=== PATIENT | female | born 1980 | race Caucasian/White ===

== ENCOUNTER 2020-01-02 17:53 | Observation (INO) | payer BC, SELFPAY ==
[2020-01-02 18:30] VITALS: BMI 36.8
[2020-01-02 18:45] VITALS: BP 99/79; PULSE 73
[2020-01-02 19:00] VITALS: BP 112/64; PULSE 73
[2020-01-02 19:15] VITALS: BP 107/65; PULSE 75
[2020-01-02 19:34] LABS: Add Urine Microscopic? YES; Appearance Urine Clear (Clear); Bacteria Urine 2+ /hpf; Bilirubin Urine Negative (Negative); Blood Urine Negative (Negative); Color Urine Yellow (Yellow); Glucose Urine UA Negative (Negative); Ketones Urine Negative (Negative); Leukocyte Esterase Ur Negative LEU/UL (NEGATIVE); Mucus Urine Rare /lpf; Nitrate Urine Negative (Negative); Protein Urine Negative (Negative); RBC Urine 0-2 /hpf (0-2); Specific Grav Ur 1.014 (1.001-1.035); Squamous Epithelial Cell Urine Few /hpf (Few); Urobilinogen Urine Negative mg/dL (<2.0)
--- NOTE | 2020-01-02 20:50 | OBADM ---
This patient, Meagan Schmidt, admitted to the OB room Labor/Delivery/Recovery 106 for observation. Patient/family oriented to hospital policies and general routines including ID bracelet, bed and alarms, visiting hours, pain management, procedures, bathroom and other care routines, personal items, smoking policy, room service/diet, and visiting hours. Patient/Family are encouraged to report perceived risks to care and to ask questions if they do not understand what they are told or what they should do.
--- NOTE | 2020-01-05 17:22 | PM.OBTRLD ---
OB - Triage/Final Diagnosis Evaluation Laboratory results: Laboratory Tests 01/02/20 19:19 Urine Color Yellow Urine Appearance Clear Urine pH 6.0 Ur Specific [place] 1.014 Urine Protein Negative Urine Glucose (UA) Negative Urine Ketones Negative Ur Blood (Man) Negative Urine Nitrate Negative Urine Bilirubin Negative Urine Urobilinogen Negative Ur Leukocyte Esterase Negative Urine RBC 0-2 Urine WBC 4-6 H Ur Squamous Epith Cells Few Urine Bacteria 2+ H Urine Mucus Rare Final Diagnosis (1) False labor: Code(s): O47.9 - False labor, unspecified Status: Acute
== END 2020-01-02 18:28 | disposition home or self-care (01) ==
PROVIDERS: Admitting Provider Obstetrics & Gynecology; Visit Provider Obstetrics & Gynecology
DX: O47.9 False labor, unspecified (principal); Z3A.00 Weeks of gestation of pregnancy not specified
CPT/HCPCS: 81001; 87086; G0378; G0379

== ENCOUNTER 2020-01-16 01:50 | Observation (INO) | payer BC, SELFPAY ==
[2020-01-16 02:10] VITALS: BP 137/72; PULSE 79
[2020-01-16 02:15] VITALS: BP 116/63; PULSE 75
[2020-01-16 02:30] VITALS: BP 112/60; PULSE 72
[2020-01-16 02:45] VITALS: BP 111/77
[2020-01-16 02:50] VITALS: BMI 37.3
[2020-01-16 03:00] VITALS: BP 115/100; PULSE 65
--- NOTE | 2020-01-16 03:23 | PC.NURSE ---
Dr. Vallejo updated on patient SVE. Patient states contractions has resolved and she is no longer feeling them. Patient SVE unchanged after 1 hour of monitoring. SVE 50/-2. FHT 110-120/moderate/accelerations. VSS. Discharge orders given.
[2020-01-16 03:26] VITALS: BP 112/61; PULSE 70
--- NOTE | 2020-01-21 09:14 | PM.OBTRLD ---
OB - Triage/Final Diagnosis Final Diagnosis (1) False labor: Code(s): O47.9 - False labor, unspecified Status: Acute
== END 2020-01-16 03:48 | disposition home or self-care (01) ==
PROVIDERS: Admitting Provider Obstetrics & Gynecology; Visit Provider Obstetrics & Gynecology
DX: O47.1 False labor at or after 37 completed weeks of gestation (principal); Z3A.39 39 weeks gestation of pregnancy
CPT/HCPCS: G0378; G0379

== ENCOUNTER 2020-01-19 12:32 | Observation (INO) | payer BC, SELFPAY ==
[2020-01-19] VITALS (8 sets, daily range): BP systolic 104–122; BP diastolic 60–74; PULSE 68–78; TEMP 37.4
[2020-01-19 13:48] LABS: Add Urine Microscopic? NO; Appearance Urine Clear (Clear); Bilirubin Urine Negative (Negative); Blood Urine Negative (Negative); Color Urine Yellow (Yellow); Glucose Urine UA Negative (Negative); Ketones Urine Negative (Negative); Leukocyte Esterase Ur Negative LEU/UL (Negative); Nitrate Urine Negative (Negative); Protein Urine Negative (Negative); Specific Grav Ur 1.016 (1.001-1.035); Urobilinogen Urine Negative mg/dL (<2.0)
--- NOTE | 2020-01-21 08:30 | PM.OBTRLD ---
OB - Triage/Final Diagnosis Visit Information Reason for evaluation: threatened labor Evaluation Laboratory results: Laboratory Tests 01/19/20 13:37 Urine Color Yellow Urine Appearance Clear Urine pH 8.0 Ur Specific [place] 1.016 Urine Protein Negative Urine Glucose (UA) Negative Urine Ketones Negative Ur Blood (Man) Negative Urine Nitrate Negative Urine Bilirubin Negative Urine Urobilinogen Negative Leukocyte Esterase Rfl Negative
== END 2020-01-19 14:50 | disposition home or self-care (01) ==
PROVIDERS: Admitting Provider Obstetrics & Gynecology; Visit Provider Obstetrics & Gynecology
DX: O47.1 False labor at or after 37 completed weeks of gestation (principal); Z3A.39 39 weeks gestation of pregnancy
CPT/HCPCS: 81003; G0378; G0379

== ENCOUNTER 2020-01-21 05:04 | Inpatient (IN) | payer BC, SELFPAY ==
[2020-01-21] VITALS (86 sets, daily range): BP systolic 88–139; BP diastolic 42–95; PULSE 58–147; TEMP 36.4–37; O2SAT 93–100; BMI 37.8
--- NOTE | 2020-01-21 05:25 | LDADM ---
This patient, Meagan Schmidt, was admitted to Labor/Delivery/Recovery 103 on 01/21/20 at 05:04. Plans for labor, pain management and were discussed with patient. Patient/family oriented to hospital policies and general routines including ID bracelet, bed and alarms, visiting hours, pain management, procedures, bathroom and other care routines, personal items, smoking policy, room service/diet and guest tray routines, security routines, and visiting hours. Patient/Family are encouraged to report perceived risks to care and to ask questions if they do not understand what they are told or what they should do. See OBIX for further documentation.
[2020-01-21 05:40] LABS: Basophils Percent Auto 0.3 % (0.2-1.2); Eosinophils Absolute Auto 0.1 K/mm3 (0-0.3); Eosinophils Percent Auto 0.8 % (0-4.4); Hematocrit 33.1 % (37.0-47.0); Immature Granulocyte Absolute 0.21 K/mm3 (0.00-0.031); Immature Granulocyte Percent A 1.8 % (0-0.5); Lymphocytes Absolute Auto 2.49 K/mm3 (0.9-3.2); Lymphocytes Percent Auto 21.3 % (18.3-44.2); Mean Corpuscular HGB Conc 33.2 g/dl (32-36); Mean Corpuscular Hemoglobin 32.9 pg (26-34); Mean Corpuscular Volume 99.1 fl (80-100); Mean Platelet Volume 9.8 fl (7.4-10.4); Monocytes Absolute Auto 0.8 K/mm3 (0.1-0.6); Monocytes Percent Auto 6.4 % (2.6-8.5); Neutrophils Absolute Auto 8.1 K/mm3 (1.3-6.7); Neutrophils Percent Auto 69.4 % (45.5-73.1); Platelet Count Result 200 k/mm3 (150-375); Red Blood Count 3.34 M/mm3 (4.2-5.4); Red Cell Distribution Width 14.6 % (11.5-14.5); White Blood Count 11.7 K/mm3 (4.5-10.0)
[2020-01-21] MEDS: OXYTOCIN 30 UNITS/NS 500 ML 30 UNITS/500 ML BAG IV CONT (06:05)
[2020-01-21] MEDS: LACTATED RINGERS 1,000 ML 125 ML IV CONT ×3 (06:05→15:54)
--- NOTE | 2020-01-21 06:32 | WPDHPUPDATE1 ---
History and Physical Update Update Date/Time: 01/21/20 06:32 History and Physical has been reviewed, including an updated exam of the patient. There are NO changes in the patient's condition. Risks, benefits, and alternatives have been discussed and questions answered. Patient agrees to proceed with procedure.
--- NOTE | 2020-01-21 06:33 | WPDOBADMIT ---
Obstetrics - Admit Note Admission Note: record reviewed. No pertinent additions to the history and/or any subsequent changes in the physical findings that are not consistent with the expected course of the were found. Additions to the history and/or subsequent changes in the physical findings follow. None.
[2020-01-21 06:48] LABS: HIV 1/2 Ab P24 Ag Result Negative (Negative)
[2020-01-21] MEDS: FAMOTIDINE 20 MG/2 ML VIAL IV PUSH (10:50)
[2020-01-21 11:27] LABS: Rapid Plasma Reagin Non-Reactive (NonReactive)
--- NOTE | 2020-01-21 20:53 | PM.OBPRVD ---
OB - Delivery Note Procedure Delivery date: 01/21/20 Route of delivery: Episiotomy description: None Laceration description: None Specimen: No Estimated blood loss (mL): 400 Anesthesia type: Epidural Disposition: floor Narrative: Patient prepped draped usual manner for this procedure. Maternal expulsive efforts readily delivered vertex which was suctioned naso and oropharynx. Rest of baby was delivered without difficulty. Cord is clamped and cut and the placenta delivered spontaneously. Cervix vagina vulva were inspected no lacerations or tears. Uterus well contracted no significant bleeding at this point seizure was considered terminated. [place] Baby Weeks of gestation at delivery: 39 gender: Female Weight (pounds): 8 Weight (ounces): 1 presentation: vertex score one minute: 8 score five minutes: 9
[2020-01-21] MEDS: OXYTOCIN 30 UNITS/NS 500 ML 30 UNITS/500 ML BAG 125 UNITS IV CONT (21:02)
[2020-01-21] MEDS: IBUPROFEN 600 MG TABLET PO (21:53)
--- NOTE | 2020-01-21 23:38 | OBPPTRN ---
Patient transferred to post room #280 via wheelchair with baby in bassinet. Support person present. Oriented to unit, room, information board, rooming in, admission packet and security measures. Patient verbalizes understanding.
[2020-01-22] VITALS: BP 110/58; PULSE 72; RESP 18; TEMP 36.6; O2SAT 99
[2020-01-22] MEDS: IBUPROFEN 600 MG TABLET PO ×3 (04:55→18:10)
--- NOTE | 2020-01-22 07:00 | PC.NURSE ---
PT introductions made and plan of care discussed per post , pain management, breast feeding, daily care activities. PT verbalized understanding of such care.
--- NOTE | 2020-01-22 08:21 | PM.OBDSVD ---
OB - DS: Summary OB Procedures : None OB Procedures Intrapartum: Spontaneous Vag Delivery OB Procedures: : None Time Spent with Patient Time attestation: Total time spent providing and/or coordinating discharge services: DS: Data Data Completed and Pending Labs on day of discharge: Labs from last 24 hours 01/22/20 01/21/20 05:38 05:29 Hgb 10.0 L Hct 30.0 L RPR Non-reactive Discharge Plan Discharge Discharging Clinician: Dae Nevarez Patient Disposition: Home, Self-Care Activity: as tolerated Diet: as tolerated Patient Instructions: Antibiotic Form Stand Alone Forms: General Discharge Information Follow-up/Referrals: Dae Nevarez MD [Physician] - 3 Weeks Discharge Medications: Continued PNV [id number] [] 28 mg iron- 800 mcg Tablet 1 tablet PO DAILY RF: 0 Discontinued acyclovir 800 mg tablet 800 mg PO DAILY RF: 0 folic acid 1 mg tablet 1 mg PO DAILY RF: 0 Date of admission: 01/21/20 05:04 Primary Care Provider: UNKNOWN,DOCTOR Admitting Provider: Dae Nevarez Attending physician on admission: Dae Nevarez
[2020-01-22 08:35] VITALS: BP 122/66; PULSE 67; RESP 18; TEMP 37.6; O2SAT 99
[2020-01-22 11:30] VITALS: PULSE 67; RESP 18; O2SAT 99
[2020-01-22] MEDS: MULTIVIT/MIN/PREN/FOL AC/IRON TABLET 1 TAB PO (11:39)
--- NOTE | 2020-01-22 14:50 | PC.NURSE ---
Requested mother call out for assessment of feeding using the nipple shield and to attempt latch without shield. Mother has not called out for assist, continues to report pain with feeding and is unable to latch without shield. Breast pump provided due to shield use. Instructions given on breast pump care and usage, pumping schedule, nipple care, and collection and storage of breast milk. Encouraged [id number], breast massage and manual expression to stimulate supply. Assessed patient for correct flange size, placement and draw. Patient verbalizes and demonstrates understanding of instructions. Mother states she wishes for discharge after 24 hours. Reviewed transition to breast milk, signs of adequate intake, and engorgement/relief. Instructed to call ICP if intake/output less than required. Reviewed regular medications mother is taking. Information provided per Cecilia. Reviewed community resources on the [facility] website and in the Mom[facility]Baby guide. Information on outpatient services provided. Mother has no further questions at this time.
[2020-01-22] MEDS: DOCUSATE SODIUM 100 MG CAPSULE PO (18:10)
[2020-01-22 19:03] VITALS: BP 120/66; PULSE 79; RESP 18; TEMP 36.6; O2SAT 98
[2020-01-24 12:00] VITALS: BP 134/71; PULSE 88; RESP 20; TEMP 36.9; O2SAT 98
== END 2020-01-22 22:52 | disposition home or self-care (01) | DRG 560 ==
LOC: ANHLDR 05:16 → ANHOB2 01-22 08:21 → ANHLDR 01-23 13:14 → ANHOB2 01-23 13:14
PROVIDERS: Admitting Provider Obstetrics & Gynecology; Visit Provider Obstetrics & Gynecology
DX: O80 Encounter for full-term uncomplicated delivery (principal); Z37.0 Single live birth; Z3A.39 39 weeks gestation of pregnancy
CPT/HCPCS: 36415; 85014; 85018; 85025; 86592; 86703; 86850; 86900; 86901; A9270; G0432; J2590; J2795; J3010; J7120